=== PATIENT | male | born 1965 | race Caucasian/White ===

== ENCOUNTER → 2021-02-06 | Outpatient (CLI) | payer OTHER ==
[~2021-02-06] MED LIST: ALBUTEROL1.25 MG/3 IH; CEPHALEXIN500 M1 PO; PEPCID 20MG TAB20 MG PO; PRIL40 PO; XANAX 0.5MG0.5 MG PO; XANAX0.5 MG PO
== END ==
LOC: COL.RAD 07:23
DX: M48.061 Spinal stenosis, lumbar region without neurogenic claudication (principal); M51.36 Other intervertebral disc degeneration, lumbar region; M47.816 Spondylosis without myelopathy or radiculopathy, lumbar region

== ENCOUNTER 2023-10-30 06:00 | Day surgery (SDC) | payer OTHER ==
[~2023-10-30] VITALS: Ht 177.8 cm; Wt 70.6 kg
[2023-10-30] MEDS ORDERED: LIPITOR20 MG PO (06:41)
[2023-10-30] MEDS ORDERED: SINGULAIR 110 MG/TAB PO (06:42)
[2023-10-30 07:00] VITALS: BP 108/81; PULSE 70; TEMP 97.8
[2023-10-30 08:08] VITALS: BP 94/74; PULSE 73; TEMP 97.2
[2023-10-30 08:15] VITALS: BP 110/82; PULSE 66
[2023-10-30 08:30] VITALS: BP 116/85; PULSE 59
--- NOTE | 2023-10-30 08:40 | NUR ---
0808- PATIENT RETURNS TO [facility] VIA CART. PT AWAKE AND ALERT. RESPIRATIONS UNLABORED. AMBULATED TO RECLINER CHAIR WITH 2:1 SBA. PT DENIES NAUSEA OR ABDOMINAL PAIN. HOOKED UP TO MONITOR AND VS OBTAINED. CALL LIGHT AT SIDE AND SIGNIFICANT OTHER PRESENT. 0816- PATIENT TOLERATING PEPSI AND WARM MUFFIN WITHOUT NAUSEA. 0823- D/C INSTRUCTIONS REVIEWED WITH PATIENT. PT VERBALIZED UNDERSTANDING AND A COPY OF INSTRUCTIONS PROVIDED IN D/C FOLDER. 0827- REMOVED IV- CATH INTACT. HINA APPLIED. 0829- DR. JUAN IN ROOM SPEAKING WITH PATIENT. 0832- PATIENT DRESSES SELF. 0840- PATIENT DISCHARGED FROM UNIT VIA W/C TO A PERSONAL VEHICLE. PT LEFT HOSPITAL IN STABLE CONDITION.
== END 2023-10-30 08:40 | disposition home or self-care (01) ==
LOC: SDCO 06:00
DX: Z12.11 Encounter for screening for malignant neoplasm of colon (principal); D12.2 Benign neoplasm of ascending colon; D12.3 Benign neoplasm of transverse colon; F17.210 Nicotine dependence, cigarettes, uncomplicated
CPT/HCPCS: J2704; J7120